=== PATIENT | male | born 1975 | race Two or more races ===

== ENCOUNTER 2025-03-05 01:56 | Emergency (ER) | payer OTHER ==
[2025-03-05] MEDS: Lidocaine 1% 10 ML MDV INJECT ONE (02:12)
== END 2025-03-05 03:05 | disposition home or self-care (01) ==
LOC: MW.ED 01:56
DX: S62.525B Nondisplaced fracture of distal phalanx of left thumb, initial encounter for open fracture (principal); Z79.899 Other long term (current) drug therapy; W20.8XXA Other cause of strike by thrown, projected or falling object, initial encounter; Y93.89 Activity, other specified
CPT/HCPCS: 73140; 99283; J2003; 12002; 99284